=== PATIENT | male | born 2000 | race African-American/Black ===

== ENCOUNTER 2024-08-13 09:33 | Outpatient (AMB) | payer OTHER, SELFPAY ==
--- NOTE | 2024-08-13 10:24 | MHC.PC.OV ---
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 Intake Note: Pt is here today as a New Patient to est care/PE Allergies No Known Allergies Allergy (Verified 08/13/24 10:41) Medication List - Last Reconciled 08/13/24 by Annabel Bergeron MD No Known Home Meds Tobacco use date assessed: 08/13/24 Dental Screening Dental Screen Date: 08/13/24 Did you have a dental visit in the last 12 months?: Yes Did you have a dental problem in the last 6 months where you did not have access to dental care?: No Was dental information given to patient?: Patient has dentist HPI 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 Melissa Lyons. He has been feeling well, with no complaints at present time. 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 1. Little interest or pleasure in doing things: not at all 2. Feeling down, depressed, or hopeless: not at all 3. Trouble falling or staying asleep, or sleeping too much: not at all 4. Feeling tired or having little energy: not at all 5. Poor appetite or overeating: not at all 6. Feeling bad about yourself - or that you are a failure or have let yourself or your family down: not at all 7. Trouble concentrating on things, such as reading the newspaper or watching television: not at all 8. Moving or speaking so slowly that other people could have noticed. Or the opposite - being so fidgety or restless that you have been moving around a lot more than usual: not at all 9. Thoughts that you would be better off or of hurting yourself in some way: not at all Total score: 0 Depression Screening Interpretation: Negative Depression Screening Done: Yes 70852 - PHQ-9 Billing: Yes Source: Developed by Drs. Jerardo Cotto, Dianna Dia, Ryan Pappas and colleagues, with an educational alexis from [employer]. Thrive Questionnaire Date Thrive assessed: 08/13/24 I am a: Patient What is your living situation today?: I have a steady place to live Within the past 12 months, did the food you bought not last and you didn't have the money to get more?: Never true Within the past 12 months, did you worry whether your food would run out before you got money to buy more?: Never true Do you have trouble paying for medicines?: No Do you have trouble getting transportation to medical appointments?: No Do you have trouble paying your heating and electricity bill?: No Do you have trouble taking care of your child, family member or friend?: No Do you have trouble with day-to-day activities such as bathing, preparing meals, shopping, managing finances, etc.?: No Are you currently unemployed and looking for a job?: Yes Are you interested in more education?: Yes THRIVE Score: 0 AUDIT C Alcohol Use Questionnaire (AUDIT-C) 1. How often do you have a drink containing alcohol?: 2-4 times a month (tequila on occasion on the weekend with friends) 2. How many drinks containing alcohol do you have on a typical day when you are drinking?: 1 or 2 3. How often do you have six or more drinks on one occasion?: Never Total Score: 2 MI-7 AMB Questionnaire MI-7 Date MI - 7 assessed: 08/13/24 Feeling nervous, anxious, or on edge: 1 = Several days Not being able to stop or control worryin = Several days Worrying too much about different things: 1 = Several days Trouble relaxin = Several days Being so restless that it is hard to sit still: 1 = Several days Becoming easily annoyed or irritable: 0 = Not at all Feeling afraid as if something awful might happen: 0 = Not at all Total MI-7 score (0-4 normal; 5-9 mild; 10-14 moderate; 15-21 severe): 5 Source: Developed by Drs. Jerardo Cotto, Dianna Dia, Ryan Pappas and colleagues, with an educational alexis from [employer]. MI-7 Assessment Billing MI-7 Assessment Tool: MI-7 Assessment 04844 Review of Systems Const Denies body aches, Denies difficulty sleeping, Denies fatigue, Denies fever(s), Denies headache(s), Denies lethargy, Denies weakness and Reports weight gain Eyes Details: Previous seen by Dr. Melissa Lyons Denies change in vision, Denies eye discharge, Denies itchy eyes and Reports requires corrective lenses ENT Denies dizziness, Denies headache(s), Denies nasal congestion, Denies nasal discharge and Denies sore throat Card Denies chest pain, Denies lightheadedness, Denies palpitations and Denies dyspnea Resp Denies chest congestion, Denies cough, Denies dyspnea and Denies wheezing GI Denies abdominal pain, Denies change in bowel habits and Denies heartburn Denies hematuria, Denies difficulty urinating, Denies dysuria, Denies urinary frequency and Denies urinary urgency Musc Reports no additional complaints Skin/Breast Denies breast pain, Denies breast mass, Denies lesions and Denies rash Neuro Denies dizziness, Denies headache(s) and Denies weakness Psych Reports no additional complaints Endo Denies fatigue, Denies polydipsia, Denies polyuria and Denies palpitations Pteer/Lymph Denies easy bleeding and Denies easy bruising Aller/Immun Denies itchy eyes, Denies seasonal rhinorrhea and Denies wheezing Physical exam (Primary Care) Vital Signs: Last Vital Signs Pulse 60 08/13/24 10:29 BP 110/70 08/13/24 10:29 Pulse Ox 97 08/13/24 10:29 Oxygen Delivery Method Room Air 08/13/24 10:29 BMI result Body Mass Index 34.7 Tobacco/Smoking Status: Tobacco use Status Tobacco use date assessed 08/13/24 08/13/24 10:30 Patient Tobacco Use Status Never used Tobacco 08/13/24 10:30 e-Cigarette/Vaping Use Never Used 08/13/24 10:30 PHQ-9: PHQ-9 Score PHQ-9: Total score 0 08/13/24 10:41 Depression Screening Interpretation: Negative Thrive Assessment: Date of Thrive Assessment Date Thrive assessed 08/13/24 08/13/24 10:30 Const General: no acute distress and alert Orientation/consciousness: patient oriented x3 HENMT Head: Yes normocephalic Ears: external ears normal, TM's normal bilaterally and EAC's normal General nose exam: Normal external nose present Face and sinus: Yes face symmetric Mouth: Normal oral and palatal mucosa present, tongue normal, oropharynx normal and moist mucous membranes Eyes General: appearance normal, both eyes and all related structures Eyelids: Yes eyelids normal Conjunctivae: conjunctivae normal Sclerae: sclerae normal Pupils: Equal, round and reactive pupils present EOM: EOMs intact bilaterally Neck Neck: Yes full ROM, Yes no lymphadenopathy and Yes supple Thyroid: Thyroid normal Chest Chest palpation & inspection: normal inspection of the chest Resp Effort & Inspection: normal respiratory effort and able to speak in complete sentences Auscultation: clear to auscultation bilaterally Cardio Rate: regular rate Rhythm: regular rhythm Heart sounds: S1 normal heart sound present and S2 normal heart sound present GI Palpation (GI): Soft to palpation, nontender, no guarding and no masses Auscultation: normal bowel sounds General: Yes no CVA tenderness Male General Exam: No hernia Scrotum: no hydroceles and no inguinal hernias Testes: no testicular mass Back/Spine/Pelvis Back: no CVA tenderness and No back tenderness Skin General skin exam: no rashes or lesions noted Neuro General: patient oriented x3, gait normal, moves all extremities, Normal light touch and pain sensation, no focal motor deficits and CN's II-XI intact bilaterally Cranial nerves: Yes Equal, round and reactive pupils present Cognition (Neuro): normal cognition Gait exam (Neuro): Normal gait present Motor exam (neuro): 5/5 motor strength present throughout Extrem General: Yes normal to inspection, Yes full ROM, Yes no joint enlargement, Yes no pedal edema and Yes normal gait Psych Appearance: grossly normal and well kempt Mental Status: mental status grossly normal Speech and movement: Normal speech and movement present Affect: normal affect Attitude: cooperative Thought process: Normal thought process present Thought content: Normal thought content present Coding Level of Care Code New Pt Prev Care 18-39yr([id number] Diagnoses Obesity (BMI 30.0-34.9) E66.811 High myopia H52.10 Annual visit for general adult medical examination with abnormal findings Z00. Need for lipid screening Z. Additional Codes MI-7 Assessment Billing - MI-7 Assessment Tool: MI-7 Assessment 51234 ([id number]) PHQ-9 - 82919 - PHQ-9 Billing: Yes ([id number]) Assessment & Plan Assessment & Plan (1) Obesity (BMI 30.0-34.9): Code(s): E66.811 - Obesity, class 1 Category: Medical Plan: Recommended focusing on improving your health instead of dieting. : Eat Mediterranean diet, limit foods high in fat, sugar, and calories, eat slowly, pay attention to portion sizes, plan your meals ahead of time, start regular physical activity 150 minutes of moderate intensity exercise or 90 minutes/week of vigorous exercise (2) High myopia: Comment: Sees Dr. Melissa Lyons Code(s): H52.10 - Myopia, unspecified eye Category: Medical Plan: He sees Dr. Melissa Lyons (3) Annual visit for general adult medical examination with abnormal findings: Code(s): Z00.01 - Encounter for general adult medical examination with abnormal findings Plan: Will check appropriate labs. Recommended dental visit every 6 months and regular eye exams, at least every 2 years. Take adequate calcium in diet and vitamin-D 3 at 2000 IU per cap once a day, in addition to weight-bearing exercises to help maintain good muscle tone and weight control. Instructed to do self-testicular exam check for any mass. Advised to get yearly flu vaccine and recommended to get his COVID booster (4) Need for lipid screening: Code(s): Z13.220 - Encounter for screening for lipoid disorders Plan: Fasting lipid panel ordered Orders: Orders Basic Metabolic Panel Fasting 08/15/24 E66.811 - Obesity, class 1, Z00.01 - Encounter for general adult medical examination with abnormal findings, Z13.1 - Encounter for screening for diabetes mellitus, Z13.220 - Encounter for screening for lipoid disorders Complete Blood Count Auto Diff 08/15/24 E66.811 - Obesity, class 1, Z00.01 - Encounter for general adult medical examination with abnormal findings, Z13.1 - Encounter for screening for diabetes mellitus, Z13.220 - Encounter for screening for lipoid disorders Lipid Panel 08/15/24 E66.811 - Obesity, class 1, Z00.01 - Encounter for general adult medical examination with abnormal findings, Z13.1 - Encounter for screening for diabetes mellitus, Z13.220 - Encounter for screening for lipoid disorders
[2024-08-13 10:29] VITALS: BP 110/70; PULSE 60; O2SAT 97; BMI 34.7
== END 2024-08-13 11:19 | disposition home or self-care (01) ==
PROVIDERS: PCP Internal Medicine; Visit Provider Internal Medicine
DX: Z00.00 Encounter for general adult medical examination without abnormal findings (principal); E66.811 Obesity, class 1; Z68.34 Body mass index [BMI] 34.0-34.9, adult; Z13.220 Encounter for screening for lipoid disorders; H52.10 Myopia, unspecified eye

== ENCOUNTER → 2024-08-13 09:33 | Outpatient (BNVA) | payer OTHER, SELFPAY | PROVIDERS: PCP Internal Medicine; Visit Provider Internal Medicine | DX: Z00.00 Encounter for general adult medical examination without abnormal findings (principal); E66.811 Obesity, class 1; Z68.34 Body mass index [BMI] 34.0-34.9, adult; H52.10 Myopia, unspecified eye | CPT/HCPCS: 96127 ==

== ENCOUNTER 2024-08-15 11:46 | Outpatient (REF) | payer OTHER, SELFPAY ==
[2024-08-15 13:19] LABS: MANUAL DIFF FLAG NO
[2024-08-15 13:36] LABS: Basophils Percent Auto 0.3 % (0-2); Eosinophils Absolute Auto 0.1 X10*3/uL (0.0-0.4); Eosinophils Percent Auto 2.4 % (0-4); Hematocrit 46.9 % (42.0-52.0); Hemoglobin 15.7 g/dl (14.0-18.0); Lymphocytes Absolute Auto 1.7 X10*3/uL (1.2-4.9); Lymphocytes Percent Auto 51.7 % (20-40); Mean Corpuscular HGB Conc 33.5 g/dl (31.0-36.0); Mean Corpuscular Hemoglobin 27.8 pg (27.0-33.0); Mean Platelet Volume 9.7 fL (9.4-12.4); Monocytes Absolute Auto 0.3 X10*3/uL (0.1-1.2); Monocytes Percent Auto 9.2 % (2-11); Neutrophils Absolute Auto 1.2 x10*3/uL (2.0-8.3); Neutrophils Percent Auto 36.4 % (45-73); Platelet Count 212 X10*3/uL (160-400); Red Blood Count 5.65 X10*6/uL (4.60-5.80); Red Cell Distribution Width 14.5 % (11.0-16.0); White Blood Count 3.3 X10*3/uL (4.8-10.8)
[2024-08-15 14:10] LABS: Anion Gap 12 (12-20); Blood Urea Nitrogen 12 mg/dL (9-16); Calcium 10.1 mg/dL (8.4-10.2); Carbon Dioxide 30 mmol/L (22-29); Chloride 102 mmol/L (96-108); Cholesterol 166 mg/dL (<200); Estimated Glomerular Filt Rate > 60; Glucose Fasting 83 mg/dL (60-99); HDL Cholesterol 43 mg/dL (>40); LDL Cholesterol Calculated 110 mg/dL (<100); Potassium 3.8 mmol/L (3.3-5.1); Sodium 140 mmol/L (135-145); Triglycerides 67 mg/dL (<150)
== END 2024-08-15 11:47 | disposition home or self-care (01) ==
LOC: HO.HMGCLDS 11:46
PROVIDERS: PCP Internal Medicine; Visit Provider Internal Medicine
DX: Z00.01 Encounter for general adult medical examination with abnormal findings (principal); Z13.220 Encounter for screening for lipoid disorders; Z13.1 Encounter for screening for diabetes mellitus; E66.811 Obesity, class 1
CPT/HCPCS: 36415; 80048; 80061; 85025